=== PATIENT | female | born 1985 | race Caucasian/White ===

== ENCOUNTER → 2021-10-10 | Day surgery (SDC) | payer OTHER ==
[~2021-10-10] VITALS: Ht 167.6 cm; Wt 90.7 kg
[~2021-10-10] MED LIST: AMOXICILLIN500 MG PO; MOTRIN600 MG PO
[2021-10-10 06:56] LABS: HCG (URINE) SCREEN NEGATIVE (NEGATIVE)
[2021-10-10 07:02] LABS: BASOPHIL 0.4 % (0-2); EOSINOPHIL 2.8 % (0-5); HCT 38.1 % (37.0-47.0); HGB 13.1 g/dl (12.5-16.0); LYMPHOCYTE 37.3 % (15-48); MCH 32.4 pg (25.0-31.0); MCHC 34.4 g/dL (32.0-36.0); MCV 94.3 fL (78.0-100.0); MONOCYTE 10.2 % (0-12); MPV 9.4 fL (6.0-9.5); NRBC 0; PLT 248 K/uL (150-400); RBC 4.04 M/uL (4.20-5.40); WBC 7.1 K/uL (4.0-10.5)
== END | disposition home or self-care (01) ==
LOC: FAS 06:19
PROVIDERS: Oral & Maxillofacial Surgery
DX: K02.9 Dental caries, unspecified (principal); K04.7 Periapical abscess without sinus; F41.9 Anxiety disorder, unspecified; F17.200 Nicotine dependence, unspecified, uncomplicated; Z79.82 Long term (current) use of aspirin
CPT/HCPCS: D7140; D7210; 36415; 84703; 85025; 93005; J1100; J2250; J2405; J2704; J3010; J7120